=== PATIENT | female | born 1980 | race Two or more races ===

== ENCOUNTER 2020-12-18 08:27 | Emergency (ER) | payer MEDICAID ==
[~2020-12-18] VITALS: Ht 149.9 cm; Wt 52.1 kg
[~2020-12-18 08:27] MED LIST: IBUP-1223 PO; LISD50CA3 PO; OXYC1TAB14 PO
[2020-12-18 08:39] VITALS: BP 135/87
--- NOTE | 2020-12-18 08:50 | NUR ---
PT REPORTS "LIQUID LEAKING OUT OF BOTH EARS" AND "SCABS COMING OUT OF EARS" X 1.5 WEEKS. INCREASING PAIN AFTER WASHING HAIR AND PAIN WOKE HER UP LAST NIGHT. PT REPORTS SHE USES EAR BUDS. Addendum: 12/18/20 at 0854 by HBENSON PT ALSO REPORTS SHE HAD A ROOT CANAL 3 WEEKS AGO, "AND IT'S NOT DOING WELL. THEY WANT ME TO GET 3D XRAYS TO CHECK ON IT."
--- NOTE | 2020-12-18 08:56 | NUR ---
GLEN KILLIAN AT BS NOW.
== END 2020-12-18 09:30 | disposition home or self-care (01) ==
LOC: ED 09:25
DX: H60.312 Diffuse otitis externa, left ear (principal)
CPT/HCPCS: 99283